=== PATIENT | female | born 1950 | race Caucasian/White ===

== ENCOUNTER 2018-05-03 03:06 | Inpatient (IN) | payer OTHER, MEDICARE | END 2018-05-06 14:00 | disposition home or self-care (01) | LOC: DOU IN ICU 16:46 → TELE-EAST 05-05 23:11 → ER 03:06 → OVERFLOW 08:25 → DOU IN ICU 16:49 | PROC: B32TYZZ Computerized Tomography (CT Scan) of Left Pulmonary Artery using Other Contrast (ICD-10-PCS; principal; ~2018-05-03) | PROC: B32SYZZ Computerized Tomography (CT Scan) of Right Pulmonary Artery using Other Contrast (ICD-10-PCS; ~2018-05-03) | DX: J18.9 Pneumonia, unspecified organism (principal); J96.21 Acute and chronic respiratory failure with hypoxia; J44.1 Chronic obstructive pulmonary disease with (acute) exacerbation; N39.0 Urinary tract infection, site not specified; E87.6 Hypokalemia; E86.0 Dehydration; E03.9 Hypothyroidism, unspecified; R73.9 Hyperglycemia, unspecified ==

== ENCOUNTER 2018-07-13 17:14 | Inpatient (IN) | payer OTHER | END 2018-07-14 14:53 | disposition home or self-care (01) | LOC: ER 17:14 → TELE 21:13 → TELE-WESTW 23:48 | DX: G93.40 Encephalopathy, unspecified (principal) ==